=== PATIENT | male | born 1955 | race Caucasian/White ===

== ENCOUNTER 2018-02-10 04:53 | Inpatient (IN) ==
[2018-02-10] MEDS ORDERED: Ketorolac Inj 30 MG/ML (IVP) Vial IV.PUSH ONE (05:01)
[2018-02-10] MEDS ORDERED: Sod Chloride 0.9% Inj 1,000 ML IV.SIG ONE (05:01)
[2018-02-10] MEDS ORDERED: Morphine Inj 4 MG/ML Vial IV.PUSH ONE (05:01)
--- NOTE | 2018-02-10 05:12 | ED ---
HPI General Chief Complaint: Abdominal Pain Stated Complaint: flank pain Time Seen by Provider: 02/10/18 04:55 Source: patient Mode of arrival: EMS Limitations: no limitations History of Present Illness HPI narrative: The patient is a 62-year-old male who presents to the emergency department via EMS for right flank pain. The patient is currently visiting [place], from [place], and developed right flank pain 1 week ago. The patient's pain initially was in the right flank, intermittent, and dull. However, the pain has intensified over the last several hours and is now associated with nausea, diaphoresis, and hematuria. He does note a few bouts of dark colored urine, possibly hematuria, over the last several days. The patient does have a previous history of bladder stones and is scheduled to undergo MRI for his prostate when he returns to [place]. Symptoms are moderate to severe, there are no current alleviating or exacerbating factors. The patient denies any chest pain, shortness of breath, or cough. The patient has a history of seizures, surgical history is significant for tonsillectomy. MD complaint: Reports flank pain Onset (ago): day(s) Pain Consistency: intermittent Location: Reports R flank Severity: severe Severity scale (1-10): 8 Quality: Reports stabbing and sharp Radiation: Reports suprapubic Migration to: Reports suprapubic Relieving factors: nothing Exacerbating factors: nothing Associated symptoms: Reports nausea Related Data Patient : No Home Medications Medication Instructions Recorded Confirmed tamsulosin [Flomax] 0.4 mg PO DAILY 02/10/18 02/10/18 zonisamide 200 mg PO HS 02/10/18 02/10/18 Previous Rx's Medication Instructions Recorded hydrocodone-acetaminophen [[place]] 1 tab PO Q4H PRN #15 tab 02/10/18 ibuprofen 600 mg PO Q6H PRN #20 tab 02/10/18 Allergies Allergy/AdvReac Type Severity Reaction Status Date / Time codeine Allergy Seizures Verified 02/10/18 05:04 Penicillins Allergy Fever Verified 02/10/18 05:04 Review of Systems ROS: all other systems reviewed are negative [facility] Medical History Medical History Seizure (Acute) Surgical History Surgical History Hx of tonsillectomy (Acute) Social History Social History Substance History: No History of Abuse Second Hand Smoke Exposure: No Smoking Status: Never smoker How Often Do You Have a Drink Containing Alcohol: 2 to 4 times a month Immunization History Tetanus Immunization: Unsure Exam Narrative Exam Narrative: GENERAL: Awake, alert, pleasant 62-year-old male who appears his stated age and is in no acute respiratory distress. Patient does appear in moderate discomfort. SKIN: Focused skin assessment warm/dry. HEAD: Atraumatic. Normocephalic. EYES: Pupils equal and round. No scleral icterus. No injection or drainage. ENT: No nasal bleeding or discharge. Mucous membranes pink and moist. NECK: Trachea midline. No JVD. CARDIOVASCULAR: Regular, bradycardic with a heart rate in the 50s. RESPIRATORY: No accessory muscle use. Clear to auscultation. Breath sounds equal bilaterally. GASTROINTESTINAL: Abdomen soft, mild right flank tenderness. No guarding rigidity. Back: No CVA tenderness. MUSCULOSKELETAL: No obvious deformities. No clubbing. No cyanosis. No edema. NEUROLOGICAL: Awake and alert. No obvious cranial nerve deficits. Motor grossly within normal limits. Normal speech. PSYCHIATRIC: Appropriate mood and affect; insight and judgment normal. Course Consultations Consultation #1: Dr. Clark and Dr. Funez will admit to Dr. Mckinney. Time: 08:10 Initial Documented Vital Signs Pulse Rate 52 L 02/10/18 04:58 Respiratory Rate 19 02/10/18 04:58 Blood Pressure 138/82 02/10/18 04:58 Pulse Oximetry 97 02/10/18 04:58 Last Documented Vital Signs Temperature 97.6 F 02/11/18 08:00 Pulse Rate 91 H 02/11/18 08:00 Respiratory Rate 18 02/11/18 08:00 Blood Pressure 156/82 H 02/11/18 08:00 Pulse Oximetry 96 02/11/18 08:00 Medical Decision Making [facility] Narrative Medical decision making narrative: IV was established, labs are drawn and sent, and the patient was placed on cardiac telemetry monitoring and continuous pulse oximetry monitoring. EKG was ordered and interpreted. The patient was administered morphine, Toradol, Zofran, and IV fluids. Noncontrast CT of the abdomen and pelvis was obtained to evaluate for possible nephrolithiasis. CT of the abdomen and pelvis was positive for 4 mm stone on the right, the patient was reassessed at 6 AM, his pain had resolved. Creatinine was 1.14. The patient will be discharged home on hydrocodone and ibuprofen, will be provided a copy of his CT results and lab results at discharge. He is advised to follow- up with his primary physician and/or urologist upon return to [place]. I did review E force, the patient had no previous prescriptions on E force. 8 AM I received a phone call from Dr. Mai, pathologist, regarding the patient's peripheral blood smear. His peripheral blood smear shows either blast or circulating lymphoma cells. Therefore, the patient needs to be admitted to the hospital for further evaluation. Medical Screen Exam Complete: Yes Emergency Medical Condition: Yes Differential Diagnosis Differential Diagnosis: Differential diagnosis includes nephrolithiasis, hydronephrosis, pyelonephritis, testicular torsion, UTI, atypical appendicitis, biliary colic, lower lobe pneumonia, inferior DE. Lab Data Lab results reviewed: Yes I reviewed the patient's lab results. Result diagrams: 02/10/18 06:00 02/10/18 05:10 Lab Results 02/10/18 02/10/18 02/10/18 Range/Units 05:10 06:00 06:00 WBC 4.0 (4.0-11.0) th/mm3 RBC 3.79 L (4.50-5.90) mil/mm3 Hgb 12.3 L (13.0-17.0) gm/dL Hct 35.5 L (39.0-51.0) % MCV 93.8 (80.0-100.0) fL MCH 32.5 (27.0-34.0) pg MCHC 34.7 (32.0-36.0) % RDW 15.8 (11.6-17.2) % Plt Count 146 L (150-450) th/mm3 MPV 7.0 (7.0-11.0) fL Prelim Diff (Auto) Manual diff required WBC Differential Manual diff final Seg Neuts % (Manual) 39 (16-70) % Band Neuts % (Manual) 1 (0-6) % Lymphocytes % (Manual) 28 (9-44) % Monocytes % (Manual) 3 (0-8) % Blast Cells % (Manual) 29 H (0-0) % Abs Neuts (Manual) 1.6 L (1.8-7.7) th/mm3 Differential Comment . Platelet Estimate Low L (Normal) Platelet Morphology Normal (Normal) Ovalocytes 1+ H (None) Smear Path Review Sodium 142 (136-145) meq/L Potassium 3.6 (3.5-5.1) meq/L Chloride 111 H (98-107) meq/L Carbon Dioxide 20.9 L (21.0-32.0) meq/L Anion Gap 10 (5-15) meq/L BUN 25 H (7-18) mg/dL Creatinine 1.14 (0.60-1.30) mg/dL Estimated GFR 65 L (>89) mL/min Random Glucose 119 H (74-106) mg/dL Calcium 8.2 L (8.5-10.1) mg/dL Magnesium 2.1 (1.5-2.5) mg/dL Total Bilirubin 0.3 (0.2-1.0) mg/dL AST 28 (15-37) U/L ALT 46 (12-78) U/L Alkaline Phosphatase 85 (45-117) U/L Total Creatine Kinase 82 (39-308) U/L Troponin I Less than 0.02 L (0.02-0.05) ng/mL Total Protein 6.7 (6.4-8.2) g/dL Albumin 3.6 (3.4-5.0) g/dL Lipase 140 (73-393) U/L Urine Color (Yellw/Straw) Urine Clarity (Clear) Urine pH (5.0-8.5) Ur Specific Dairy (1.002-1.035) Urine Protein (Neg-Trace) mg/dL Urine Glucose (UA) (Negative) mg/dL Urine Ketones (Negative) mg/dL Urine Occult Blood (Negative) Urine Nitrate (Negative) Urine Bilirubin (Negative) Urine Urobilinogen (Less than 2) mg/dL Ur Leukocyte Esterase (Negative) Urine RBC (0-3) /hpf Urine WBC (0-5) /hpf Urine Bacteria (None) /hpf Urine Mucus (Occasional) /lpf Micro UA Comment Ur Microscopic Review Urine Culture Comments 02/10/18 Range/Units 06:15 WBC (4.0-11.0) th/mm3 RBC (4.50-5.90) mil/mm3 Hgb (13.0-17.0) gm/dL Hct (39.0-51.0) % MCV (80.0-100.0) fL MCH (27.0-34.0) pg MCHC (32.0-36.0) % RDW (11.6-17.2) % Plt Count (150-450) th/mm3 MPV (7.0-11.0) fL Prelim Diff (Auto) WBC Differential Seg Neuts % (Manual) (16-70) % Band Neuts % (Manual) (0-6) % Lymphocytes % (Manual) (9-44) % Monocytes % (Manual) (0-8) % Blast Cells % (Manual) (0-0) % Abs Neuts (Manual) (1.8-7.7) th/mm3 Differential Comment Platelet Estimate (Normal) Platelet Morphology (Normal) Ovalocytes (None) Smear Path Review Sodium (136-145) meq/L Potassium (3.5-5.1) meq/L Chloride (98-107) meq/L Carbon Dioxide (21.0-32.0) meq/L Anion Gap (5-15) meq/L BUN (7-18) mg/dL Creatinine (0.60-1.30) mg/dL Estimated GFR (>89) mL/min Random Glucose (74-106) mg/dL Calcium (8.5-10.1) mg/dL Magnesium (1.5-2.5) mg/dL Total Bilirubin (0.2-1.0) mg/dL AST (15-37) U/L ALT (12-78) U/L Alkaline Phosphatase (45-117) U/L Total Creatine Kinase (39-308) U/L Troponin I (0.02-0.05) ng/mL Total Protein (6.4-8.2) g/dL Albumin (3.4-5.0) g/dL Lipase (73-393) U/L Urine Color Yellow (Yellw/Straw) Urine Clarity Cloudy H (Clear) Urine pH 7.0 (5.0-8.5) Ur Specific Dairy 1.017 (1.002-1.035) Urine Protein 30 H (Neg-Trace) mg/dL Urine Glucose (UA) Negative (Negative) mg/dL Urine Ketones 20 (Negative) mg/dL Urine Occult Blood Large H (Negative) Urine Nitrate Negative (Negative) Urine Bilirubin Negative (Negative) Urine Urobilinogen Less than 2 (Less than 2) mg/dL Ur Leukocyte Esterase Moderate H (Negative) Urine RBC (0-3) /hpf Urine WBC 41 H (0-5) /hpf Urine Bacteria Occasional H (None) /hpf Urine Mucus Few H (Occasional) /lpf Micro UA Comment Culture indicated Ur Microscopic Review Not Reportable Urine Culture Comments Culture indicated Imaging Data Radiologist's impression: Abdomen/Pelvis CT 02/10/18 05:01 CONCLUSION: 1. 4 mm stone in the distal right ureter with moderate hydronephrosis on the right side. 2. Multiple calcifications within the urinary bladder related to either primary bladder stones or passed stones 3. Prostatic enlargement. 4. Scattered colonic diverticula. 5. Mild hiatal hernia. Discharge Plan Discharge Disposition Patient Disposition: 30 Still Patient Discharge Condition Condition: Stable Discharge Details Diagnosis: Ureterolithiasis, Acute UTI, Abnormal blood findings Physicians Team ED Provider: Galen Gordon Primary Care Provider: Primary Marlyn Gloria Attending Provider: Nikhil Mckinney Other Providers: Shirin Bautista Evan Status ED Status: Left Department Discharge Information Discharge Date/Time: 02/10/18 11:28
[2018-02-10 05:38] LABS: Alkaline Phosphatase 85 U/L (45-117); Total Protein 6.7 g/dL (6.4-8.2)
--- NOTE | 2018-02-10 05:43 | CT ---
EXAM DATE: 02/10/2018 5:03 AM EDT AGE/SEX: 62 years / Male INDICATIONS: Right flank pain past week. CLINICAL DATA: This is the patient's initial encounter. Patient reports that signs and symptoms have been present for 1 week and indicates a pain score of 10/10. MEDICAL/SURGICAL HISTORY: Seizures. Tonsillectomy. RADIATION DOSE: 9.90 CTDI (mGy) COMPARISON: . TECHNIQUE: Multiple contiguous axial images were obtained through the abdomen. Images were obtained using multiple row detector helical technique. Using automated exposure control and adjustment of the mA and/or kV according to patient size, radiation dose was kept as low as reasonably achievable to o btain optimal diagnostic quality images. DICOM format image data is available electronically for rev iew and comparison. FINDINGS: Lower Lungs: There is mild increased density seen at the posterior lower lungs likely related to atel ectasis. Liver: The liver has a homogeneous density without space-occupying lesion. There is no dilation of th e biliary tree. Spleen: Homogeneous density without enlargement. Pancreas: Unremarkable without mass or calcification. Kidneys: There is moderate dilatation of the right collecting system. There is a tiny 1 to 2 mm nono bstructing stone seen in the superior right collecting system. The right ureter is dilated to the mid pelvis. In this region, there is a 4 mm stone. This is approximately 3 cm proximal to the UVJ. The l eft kidney is unremarkable. Adrenal Glands: Unremarkable. Aorta: The aorta and proximal iliac vessels are grossly unremarkable without aneurysmal dilation. Bowel/Mesentery: The bowel loops are grossly unremarkable. The cecum and sigmoid colon have a normal configuration. The appendix is normal. There are a few scattered colonic diverticula. There is a mi ld hiatal hernia present. Abdominal Wall: Intact. Retroperitoneum: No evidence of adenopathy in the retrocrural, para-aortic, or deep pelvic regions. Bladder: There are several calcifications in the urinary bladder which may relate to either primary bladder stones or passed ureteral stones. Reproductive Organs: The prostate is enlarged. Prosthetic calcifications are present. Inguinal: The inguinal region is unremarkable without evidence of adenopathy. Bony Structures: There is some degenerative change at the lower lumbar spine. CONCLUSION: 1. 4 mm stone in the distal right ureter with moderate hydronephrosis on the right side. 2. Multiple calcifications within the urinary bladder related to either primary bladder stones or pa ssed stones 3. Prostatic enlargement. 4. Scattered colonic diverticula. 5. Mild hiatal hernia. Electronically signed by: Don Talavera MD 02/10/2018 5:41 AM EDT
[2018-02-10 05:54] LABS: Alanine Aminotransferase 46 U/L (12-78); Albumin 3.6 g/dL (3.4-5.0); Anion Gap 10 meq/L (5-15); Aspartate Aminotransferase 28 U/L (15-37); Blood Urea Nitrogen 25 mg/dL (7-18); Calcium 8.2 mg/dL (8.5-10.1); Carbon Dioxide 20.9 meq/L (21.0-32.0); Chloride 111 meq/L (98-107); Glomerular Filtration Rate 65 mL/min (>89); Glucose,Random 119 mg/dL (74-106); Lipase 140 U/L (73-393); Magnesium 2.1 mg/dL (1.5-2.5); Potassium 3.6 meq/L (3.5-5.1); Sodium 142 meq/L (136-145)
[2018-02-10 05:55] LABS: Creatine Kinase 82 U/L (39-308)
[2018-02-10 06:23] LABS: Hematocrit 35.5 % (39.0-51.0); Hemoglobin 12.3 gm/dL (13.0-17.0); Mean Corpuscular HGB Conc 34.7 % (32.0-36.0); Mean Corpuscular Hemoglobin 32.5 pg (27.0-34.0); Mean Corpuscular Volume 93.8 fL (80.0-100.0); Platelet Count 146 th/mm3 (150-450); Red Blood Count 3.79 mil/mm3 (4.50-5.90); Red Cell Distribution Width 15.8 % (11.6-17.2)
[2018-02-10 07:39] LABS: Bacteria,Urine Occasional /hpf; Bilirubin,Urine Negative (Negative); Clarity,Urine Cloudy (Clear); Color,Urine Yellow (Yellw/Straw); Glucose,Urine (UA) Negative (Negative); Leukocyte Esterase,Urine Moderate (Negative); Mucus,Urine Few /lpf (Occasional); Nitrite,Urine Negative (Negative); Specific Gravity,Urine 1.017 (1.002-1.035)
[2018-02-10 07:41] LABS: Monocytes 3 % (0-8)
[2018-02-10 07:42] LABS: Lymphocytes 28 % (9-44); Ovalocytes 1+; Platelet Morphology Normal (Normal)
[2018-02-10 07:54] LABS: Blast Cells 29 % (0-0)
--- NOTE | 2018-02-10 08:22 | P.HPFP ---
History of Present Illness Primary Care Physician: No Primary Care Physician <HankAmericay - 02/10/18 13:12> No Primary Care Physician <Mar Clark N - 02/10/18 08:22> Chief Complaint: back pain <Mar Clark N - 02/10/18 10:44> History of Present Illness: 62-year-old male presenting to the emergency department with urinary obstruction and found to have an obstructing nephrolithiasis. He states that he has had right flank pain for the last several weeks, was seen by his primary care physician up in [place] who ordered a ultrasound that showed mild hydronephrosis likely to urinary obstruction. This significantly worsened over the last 24 hours and his right side flank pain became debilitating and associated with nausea. He presented to the emergency department suspecting he had a kidney stone, and this was verified by CT scan with a 4 mm kidney stone and right-sided hydronephrosis. He does endorse occasional dysuria with recent dark colored urine. He denies overt fevers, denies abdominal pain, denies chest pain or palpitations. During his workup, his lab work returned showing 29% blasts on his CBC and it was recommended that he obtain a full peripheral smear and further workup. He was admitted for definitive treatment of his obstructing nephrolithiasis, UTI, and abnormal hematologic evaluation. Other than the right sided flank/abdominal pain over the last few weeks, he does endorse some mild fatigue but attributed this to a change in shift at his job, recently working the director of front office as well as waking up several times at night due to his enlarged prostate. He denies any weight loss or weight gain, denies any noticeable lymphadenopathy, denies any change in appetite or energy. He is currently being worked up for an enlarged prostate with elevating PSA, stating his PSA is somewhere in the range of 40. He is scheduled to have an MRI early next week followed by a urology evaluation. He has been treated for elevated PSA several times with antibiotics in the past, with resulting decrease in his PSA back into the normal range. <Nikhil Mckinney - 02/10/18 13:12> 62 y/o M presenting with stabbing back pain. Started out having an ache in his right side of his back in the last week and felt like he had a swelling. Increased significantly last night as a stabbing pain, so had sister call an ambulance to pick him up and take him to the hospital. Endorsed nausea and pleuritic pain that has now resolved with pain medication (received morphine x1 in the ED). Suspected he had a kidney stone. Had had occasional dysuria and blood (tiny little clots) in his urine (one time per month). Denies fevers, lower abdominal pain, nausea/vomiting. Has had a UTI associated w/fever of 103.5 in the past, for which he was hospitalized. Is from [place] visiting his sister in [place], will be leaving this Thursday. PCP Lula Mak at [facility] in [place], [place]. Was found to have enlarged prostate associated with a PSA count of 40 - his PCP ordered for an MRI when he returns to [place] on Thursday. Had an ultrasound done before this that "showed back pressure at the kidney." No kidney stone was seen and patient denies history of any kidney stones. US did show bladder stones. No recent weight loss, loss of appetite, night sweats. Notices ankle swelling (R >L) that is worse at the end of the day. Feels that energy level has been less than usual in the past few weeks. Has been sleeping less due to increased urinary frequency and more director of front office work. Works as a meteorologist. Family history: he is adopted. Aware that mom had skin cancer. from complications aortic aneurysm repair. Age 87. <Mar Clark - 02/10/18 10:44> - Diagnosis (1) Hydronephrosis with renal calculous obstruction (2) Complicated UTI (urinary tract infection) (3) Abnormal blood findings (4) BPH (benign prostatic hyperplasia) (5) Nutrition, metabolism, and development symptoms (6) DVT prophylaxis <Nikhil Mckinney - 02/10/18 13:12> (1) Hydronephrosis with renal calculous obstruction (2) Complicated UTI (urinary tract infection) (3) Abnormal blood findings (4) BPH (benign prostatic hyperplasia) (5) Nutrition, metabolism, and development symptoms (6) DVT prophylaxis <Mar Clark - 02/10/18 10:56> Inpatient Certification: I certify that the inpatient services were ordered in accordance with Medicare regulations governing the order. This includes certification that hospital inpatient services are reasonable and necessary and in the case of services not specified as inpatient-only under 42 CFR 419.22(n), that they are appropriately provided as inpatient services in accordance to with the 2-midnight benchmark under 43 CFR 412.3(e) <Nikhil Mckinney - 02/10/18 13:12> Review of Systems Eyes: Denies blurry vision, Denies double vision <Mar Clark 02/10/18 08: 40> Ears, Nose, Mouth, and Throat: Denies headache(s), Denies post nasal drip, Denies sore throat, Denies throat swelling <Mar Clark 02/10/18 08:40> Cardiovascular: Denies chest pain, Denies leg swelling, Denies shortness of breath [facility]> Respiratory: Denies chest congestion, Denies cough [facility]> Gastrointestinal: Denies abdominal pain, Denies change in bowel habits, Denies constipation, Denies incontinent of stools, Denies loose stools, Denies nausea, Denies vomiting <Mar Clark 02/10/18 08:40> Genitourinary: Reports blood in urine (Once in a while), Reports frequent nighttime urination, Reports urinary frequency, Reports urinary urgency <Mar Clark 02/10/18 08:40> Musculoskeletal: Denies body aches, Denies muscle cramps, Denies muscle weakness <Mar Clark 02/10/18 08:40> Skin/Breast: Denies skin pain <Mar Clark 02/10/18 08:40> Neurologic: Denies localized weakness, Denies memory loss, Denies numbness, Denies tingling/numbness/burning sensations <Mar Clark 02/10/18 08:40> Endocrine: Denies cold intolerance, Denies heat intolerance, Denies increased thirst <Mar Clark 02/10/18 08:40> Hematologic/Lymphatic: Denies easy bleeding, Denies easy bruising <Mar Clark 02/10/18 08:40> PMFSH - History History Provided By: Patient <Mar Clark 02/10/18 08:22> - Medical History Medical History: Medical History (Last Updated 02/10/18 @ 05:01 by Leon Squires) Seizure <Nikhil Mckinney 02/10/18 13:12> Medical History (Last Updated 02/10/18 @ 05:01 by Leon Squires) Seizure <Mar Clark 02/10/18 08:22> - Surgical History Surgical History: Surgical History (Last Updated 02/10/18 @ 05:02 by Leon Squires) Hx of tonsillectomy <Nikhil Mckinney 02/10/18 13:12> Surgical History (Last Updated 02/10/18 @ 05:02 by Leon Squires) Hx of tonsillectomy <Mar Clark 02/10/18 08:22> - Tobacco History Second Hand Smoke Exposure: No <Mar Clark 02/10/18 08:22> Smoking Status: Never smoker <Mar Clark 02/10/18 08:22> - Alcohol History How Often Do You Have a Drink Containing Alcohol: Monthly or less <Mar Clark 02/10/18 08:22> - Substance Use History Substance History: No History of Abuse <Mar Clark 02/10/18 08:40> - Immunization History Tetanus Immunization: Unsure <Mar Clark 02/10/18 08:22> Medications and Allergies Allergies Allergy/AdvReac Type Severity Reaction Status Date / Time codeine Allergy Seizures Verified 02/10/18 05:04 Penicillins Allergy Fever Verified 02/10/18 05:04 <Nikhil Mckinney 02/10/18 13:12> Home Medications Medication Instructions Recorded Confirmed Type tamsulosin [Flomax] 0.4 mg PO DAILY 02/10/18 02/10/18 History <HankNikhil 02/10/18 13:12> Active Medications: Active Medications Acetaminophen (Tylenol) 650 mg PO Q4H PRN PRN Reason: Temp > 100.4 Al Hydroxide/Mg Hydroxide (Milk Of Magnesia Liq) 30 ml PO Q12H PRN PRN Reason: Mild Constipation Bisacodyl (Dulcolax Supp) 10 mg RECTAL DAILY PRN PRN Reason: SEVERE CONSITIPATION Sodium Chloride (Ns Inj) 1,000 mls @ 120 mls/hr IV.CONT .Q8H20M [facility] Last Admin: 02/10/18 10:24 Dose: 120 mls/hr Ceftriaxone Sodium 1,000 mg/ (Sodium Chloride) 100 mls @ 200 mls/hr IV.SIG Q24H [facility] Ketorolac Tromethamine (Toradol Inj) 30 mg IV.PUSH Q6H PRN PRN Reason: PAIN 6-10;IF UNABLE TO TAKE PO Stop: 02/15/18 05:10 Last Admin: 02/10/18 11:36 Dose: 30 mg Ketorolac Tromethamine (Toradol Inj) 15 mg IV.PUSH Q6H PRN PRN Reason: PAIN 3-5; IF UABLE TO TAKE PO Stop: 02/15/18 05:10 Lactulose (Lactulose Liq) 30 ml PO DAILY PRN PRN Reason: SEVERE CONSITIPATION Morphine Sulfate (Morphine Inj) 4 mg IV.PUSH Q3H PRN PRN Reason: BREAKTHROUGH PAIN Naloxone HCl (Narcan Inj) 0.4 mg IV.PUSH UNSCH PRN PRN Reason: SEE LABEL COMMENTS Ondansetron HCl (Zofran Inj) 4 mg IV.PUSH Q6H PRN PRN Reason: NAUSEA OR VOMITING Last Admin: 02/10/18 11:35 Dose: 4 mg Sennosides (Senokot) 17.2 mg PO Q12H PRN PRN Reason: Moderate Constipation Sodium Chloride (Ns Flush) 2 ml IV.FLUSH PRN PRN PRN Reason: FLUSH AFTER USING IV ACCESS Tamsulosin HCl (Flomax) 0.4 mg PO DAILY [facility] Last Admin: 02/10/18 10:21 Dose: 0.4 mg Zonisamide (Zonegran) 200 mg PO HS [facility] <Nikhil Mckinney - 02/10/18 13:12> Active Medications Ceftriaxone Sodium 1,000 mg/ (Sodium Chloride) 100 mls @ 200 mls/hr IV.SIG ONCE ONE Stop: 02/10/18 08:39 Sodium Chloride (Ns Flush) 2 ml IV.FLUSH PRN PRN PRN Reason: FLUSH AFTER USING IV ACCESS <Mar Clark N - 02/10/18 08:22> Exam Vital signs: Vital Signs 02/10/18 04:58 02/10/18 09:00 02/10/18 10:49 Temperature Pulse Rate 52 L 104 H Respiratory Rate 19 20 Blood Pressure 138/82 139/88 Pulse Oximetry 97 97 99 02/10/18 12:00 Temperature 97.7 F Pulse Rate 65 Respiratory Rate 19 Blood Pressure 163/82 H Pulse Oximetry 95 Intake & Output 02/09/18 02/10/18 02/10/18 18:59 06:59 18:59 Intake Total 1000 / 1000 100 / 100 Balance 1000 / 1000 100 / 100 Weight 81.647 kg Intake: IV 1000 / 1000 100 / 100 NS Inj 1,000 ML @ Wide Open IV. 1000 / 1000 SIG BOLUS ONE Rx#:[id number] Rocephin Inj 1,000 MG In NS Inj 100 / 100 100 ML @ 200 mls/hr IV.SIG ONCE ONE Rx#:[id number] Other: Date of Last Bowel Movement 02/10/18 <Nikhil Mckinney - 02/10/18 13:12> Vital Signs 02/10/18 04:58 Pulse Rate 52 L Respiratory Rate 19 Blood Pressure 138/82 Pulse Oximetry 97 Intake & Output 02/09/18 02/10/18 02/10/18 18:59 06:59 18:59 Intake Total 1000 / 1000 Balance 1000 / 1000 Weight 81.647 kg Intake: IV 1000 / 1000 NS Inj 1,000 ML @ Wide Open IV. 1000 / 1000 SIG BOLUS ONE Rx#:[id number] <AmberMar N - 02/10/18 08:22> Narrative: GENERAL: Healthy-appearing male, lying in bed in no obvious distress. He did just receive pain medication SKIN: Warm and dry. No cervical or axillary LAD. CARDIOVASCULAR: Regular rate and rhythm. RESPIRATORY: No accessory muscle use. Clear to auscultation. Breath sounds equal bilaterally. GASTROINTESTINAL: Abdomen soft, non-tender, nondistended. NEUROLOGICAL: Awake and alert. No obvious cranial nerve deficits. PSYCHIATRIC: Appropriate mood and affect; insight and judgment normal. <Nikhil Mckinney - 02/10/18 13:12> GENERAL: Pleasant, thin White gentleman sitting calmly and comfortably in the bed. SKIN: Warm and dry. No cervical or axillary LAD. HEAD: Atraumatic. Normocephalic. EYES: Pupils equal and round. No scleral icterus. No injection or drainage. ENT: No nasal bleeding or discharge. Mucous membranes pink and moist. NECK: Trachea midline. CARDIOVASCULAR: Regular rate and rhythm. RESPIRATORY: No accessory muscle use. Clear to auscultation. Breath sounds equal bilaterally. GASTROINTESTINAL: Abdomen soft, non-tender, nondistended. Hepatic and splenic margins not palpable. No CVA tenderness. MUSCULOSKELETAL: 2+ edema at the right ankle, 1+ edema at the left. Pt points out small lipoma at the right posterior lower extremity. NEUROLOGICAL: Awake and alert. No obvious cranial nerve deficits. Motor grossly within normal limits. Normal speech. PSYCHIATRIC: Appropriate mood and affect; insight and judgment normal. <Mar Clark - 02/10/18 10:59> Results - Labs Result diagrams: 02/10/18 06:00 02/10/18 05:10 <Nikhil Mckinney - 02/10/18 13:12> Abnormal lab results 02/10/18 02/10/18 02/10/18 Range/Units 05:10 06:00 06:15 RBC 3.79 L (4.50-5.90) mil/mm3 Hgb 12.3 L (13.0-17.0) gm/dL Hct 35.5 L (39.0-51.0) % Plt Count 146 L (150-450) th/mm3 Blast Cells % (Manual) 29 H (0-0) % Abs Neuts (Manual) 1.6 L (1.8-7.7) th/mm3 Platelet Estimate Low L (Normal) Ovalocytes 1+ H (None) Chloride 111 H (98-107) meq/L Carbon Dioxide 20.9 L (21.0-32.0) meq/L BUN 25 H (7-18) mg/dL Estimated GFR 65 L (>89) mL/min Random Glucose 119 H (74-106) mg/dL Calcium 8.2 L (8.5-10.1) mg/dL Troponin I Less than 0.02 L (0.02-0.05) ng/mL Urine Clarity Cloudy H (Clear) Urine Protein 30 H (Neg-Trace) mg/dL Urine Occult Blood Large H (Negative) Ur Leukocyte Esterase Moderate H (Negative) Urine WBC 41 H (0-5) /hpf Urine Bacteria Occasional H (None) /hpf Urine Mucus Few H (Occasional) /lpf Short CBC 02/10/18 Range/Units 06:00 WBC 4.0 (4.0-11.0) th/mm3 Hgb 12.3 L (13.0-17.0) gm/dL Hct 35.5 L (39.0-51.0) % Plt Count 146 L (150-450) th/mm3 BMP 02/10/18 05:10 Sodium 142 Potassium 3.6 Chloride 111 H Carbon Dioxide 20.9 L BUN 25 H Creatinine 1.14 Calcium 8.2 L Cardiac Enzymes 02/10/18 Range/Units 05:10 Total Creatine Kinase 82 (39-308) U/L Troponin I Less than 0.02 L (0.02-0.05) ng/mL Liver Function 02/10/18 Range/Units 05:10 Total Bilirubin 0.3 (0.2-1.0) mg/dL AST 28 (15-37) U/L ALT 46 (12-78) U/L Alkaline Phosphatase 85 (45-117) U/L Albumin 3.6 (3.4-5.0) g/dL Urine 02/10/18 Range/Units 06:15 Urine Color Yellow (Yellw/Straw) Urine Clarity Cloudy H (Clear) Urine pH 7.0 (5.0-8.5) Ur Specific [place] 1.017 (1.002-1.035) Urine Protein 30 H (Neg-Trace) mg/dL Urine Glucose (UA) Negative (Negative) mg/dL <Nikhil Mckinney - 02/10/18 13:12> Abnormal lab results 02/10/18 02/10/18 02/10/18 Range/Units 05:10 06:00 06:15 RBC 3.79 L (4.50-5.90) mil/mm3 Hgb 12.3 L (13.0-17.0) gm/dL Hct 35.5 L (39.0-51.0) % Plt Count 146 L (150-450) th/mm3 Blast Cells % (Manual) 29 H (0-0) % Abs Neuts (Manual) 1.6 L (1.8-7.7) th/mm3 Platelet Estimate Low L (Normal) Ovalocytes 1+ H (None) Chloride 111 H (98-107) meq/L Carbon Dioxide 20.9 L (21.0-32.0) meq/L BUN 25 H (7-18) mg/dL Estimated GFR 65 L (>89) mL/min Random Glucose 119 H (74-106) mg/dL Calcium 8.2 L (8.5-10.1) mg/dL Troponin I Less than 0.02 L (0.02-0.05) ng/mL Urine Clarity Cloudy H (Clear) Urine Protein 30 H (Neg-Trace) mg/dL Urine Occult Blood Large H (Negative) Ur Leukocyte Esterase Moderate H (Negative) Urine WBC 41 H (0-5) /hpf Urine Bacteria Occasional H (None) /hpf Urine Mucus Few H (Occasional) /lpf Short CBC 02/10/18 Range/Units 06:00 WBC 4.0 (4.0-11.0) th/mm3 Hgb 12.3 L (13.0-17.0) gm/dL Hct 35.5 L (39.0-51.0) % Plt Count 146 L (150-450) th/mm3 BMP 02/10/18 05:10 Sodium 142 Potassium 3.6 Chloride 111 H Carbon Dioxide 20.9 L BUN 25 H Creatinine 1.14 Calcium 8.2 L Cardiac Enzymes 02/10/18 Range/Units 05:10 Total Creatine Kinase 82 (39-308) U/L Troponin I Less than 0.02 L (0.02-0.05) ng/mL Liver Function 02/10/18 Range/Units 05:10 Total Bilirubin 0.3 (0.2-1.0) mg/dL AST 28 (15-37) U/L ALT 46 (12-78) U/L Alkaline Phosphatase 85 (45-117) U/L Albumin 3.6 (3.4-5.0) g/dL Urine 02/10/18 Range/Units 06:15 Urine Color Yellow (Yellw/Straw) Urine Clarity Cloudy H (Clear) Urine pH 7.0 (5.0-8.5) Ur Specific [place] 1.017 (1.002-1.035) Urine Protein 30 H (Neg-Trace) mg/dL Urine Glucose (UA) Negative (Negative) mg/dL <Mar Clark - 02/10/18 08:22> - Imaging Impressions Abdomen/Pelvis CT 02/10/18 05:01 CONCLUSION: 1. 4 mm stone in the distal right ureter with moderate hydronephrosis on the right side. 2. Multiple calcifications within the urinary bladder related to either primary bladder stones or passed stones 3. Prostatic enlargement. 4. Scattered colonic diverticula. 5. Mild hiatal hernia. <Nikhil Mckinney - 02/10/18 13:12> Impressions Abdomen/Pelvis CT 02/10/18 05:01 CONCLUSION: 1. 4 mm stone in the distal right ureter with moderate hydronephrosis on the right side. 2. Multiple calcifications within the urinary bladder related to either primary bladder stones or passed stones 3. Prostatic enlargement. 4. Scattered colonic diverticula. 5. Mild hiatal hernia. <Mar Clark - 02/10/18 08:22> Caprini VTE Risk Assessment Caprini VTE Risk Assessment: No/Low Risk (score <= 1) <Mar Clark - 10:59> Caprini Risk Assessment Model: Point Value = 1 Point Value = 2 Point Value = 3 Point Value = 5 Age 41-60 Minor surgery BMI > 25 kg/m2 Swollen legs Varicose veins or History of unexplained or recurrent spontaneous Oral contraceptives or hormone replacement Sepsis (< 1 month) Serious lung disease, including pneumonia (< 1 month) Abnormal pulmonary function Acute myocardial infarction Congestive heart failure (< 1 month) History of inflammatory bowel disease Medical patient at bed rest Age 61-74 Arthroscopic surgery Major open surgery (> 45 min) Laparoscopic surgery (> 45 min) Malignancy Confined to bed (> 72 hours) Immobilizing plaster cast Central venous access Age >= 75 History of VTE Family history of VTE Factor V Leiden Prothrombin [id number] Lupus anticoagulant Anticardiolipin antibodies Elevated serum homocysteine Heparin-induced thrombocytopenia Other congenital or acquired thrombophilia Stroke (< 1 month) Elective arthroplasty Hip, pelvis, or leg fracture Acute spinal cord injury (< 1 month) <Nikhil Mckinney - 02/10/18 13:12> Point Value = 1 Point Value = 2 Point Value = 3 Point Value = 5 Age 41-60 Minor surgery BMI > 25 kg/m2 Swollen legs Varicose veins or History of unexplained or recurrent spontaneous Oral contraceptives or hormone replacement Sepsis (< 1 month) Serious lung disease, including pneumonia (< 1 month) Abnormal pulmonary function Acute myocardial infarction Congestive heart failure (< 1 month) History of inflammatory bowel disease Medical patient at bed rest Age 61-74 Arthroscopic surgery Major open surgery (> 45 min) Laparoscopic surgery (> 45 min) Malignancy Confined to bed (> 72 hours) Immobilizing plaster cast Central venous access Age >= 75 History of VTE Family history of VTE Factor V Leiden Prothrombin [id number] Lupus anticoagulant Anticardiolipin antibodies Elevated serum homocysteine Heparin-induced thrombocytopenia Other congenital or acquired thrombophilia Stroke (< 1 month) Elective arthroplasty Hip, pelvis, or leg fracture Acute spinal cord injury (< 1 month) <Mar Clark - 02/10/18 08:22> Prophylaxis Regimen: Total Risk Factor Score Risk Level Prophylaxis Regimen 0-1 Low Early ambulation 2 Moderate Order ONE of the following: *Sequential Compression Device (SCD) *Heparin 5000 units SQ BID 3-4 Higher Order ONE of the following medications: *Heparin 5000 units SQ TID *Enoxaparin/Lovenox 40 mg SQ daily (WT < 150 kg, CrCl > 30 mL/min) *Enoxaparin/Lovenox 30 mg SQ daily (WT < 150 kg, CrCl > 10-29 mL/min) *Enoxaparin/Lovenox 30 mg SQ BID (WT < 150 kg, CrCl > 30 mL/min) AND/OR *Sequential Compression Device (SCD) 5 or more Highest Order ONE of the following medications: *Heparin 5000 units SQ TID (Preferred with Epidurals) *Enoxaparin/Lovenox 40 mg SQ daily (WT < 150 kg, CrCl > 30 mL/min) *Enoxaparin/Lovenox 30 mg SQ daily (WT < 150 kg, CrCl > 10-29 mL/min) *Enoxaparin/Lovenox 30 mg SQ BID (WT < 150 kg, CrCl > 30 mL/min) AND *Sequential Compression Device (SCD) <Nikhil Mckinney - 02/10/18 13:12> Total Risk Factor Score Risk Level Prophylaxis Regimen 0-1 Low Early ambulation 2 Moderate Order ONE of the following: *Sequential Compression Device (SCD) *Heparin 5000 units SQ BID 3-4 Higher Order ONE of the following medications: *Heparin 5000 units SQ TID *Enoxaparin/Lovenox 40 mg SQ daily (WT < 150 kg, CrCl > 30 mL/min) *Enoxaparin/Lovenox 30 mg SQ daily (WT < 150 kg, CrCl > 10-29 mL/min) *Enoxaparin/Lovenox 30 mg SQ BID (WT < 150 kg, CrCl > 30 mL/min) AND/OR *Sequential Compression Device (SCD) 5 or more Highest Order ONE of the following medications: *Heparin 5000 units SQ TID (Preferred with Epidurals) *Enoxaparin/Lovenox 40 mg SQ daily (WT < 150 kg, CrCl > 30 mL/min) *Enoxaparin/Lovenox 30 mg SQ daily (WT < 150 kg, CrCl > 10-29 mL/min) *Enoxaparin/Lovenox 30 mg SQ BID (WT < 150 kg, CrCl > 30 mL/min) AND *Sequential Compression Device (SCD) <Mar Clark - 02/10/18 08:22> Assessment and Plan - Assessment (1) Hydronephrosis with renal calculous obstruction Code(s): N13.2 - Hydronephrosis with renal and ureteral calculous obstruction Status: Acute Plan: CT scan: 4 mm stone in the distal right ureter with moderate hydronephrosis on the right side. Multiple calcifications within the urinary bladder related to either primary bladder stones or passed stones. Prostatic enlargement. Urology consulted for obstructive nephrolithiasis -Continue Flomax 0.4 mg daily -Strain urine to evaluate for passage of stone Pain control: Toradol Morphine IV antibiotics with Rocephin -Urinalysis with moderate leukocyte esterase and 41 WBCs -Urine culture pending (2) Complicated UTI (urinary tract infection) Code(s): N39.0 - Urinary tract infection, site not specified Status: Acute Plan: Continue IV antibiotics with Rocephin Urine cultures pending Continue IV fluids (3) Abnormal blood findings Code(s): R79.9 - Abnormal finding of blood chemistry, unspecified Status: Acute Plan: CBC on admission shows elevated blasts at 29% -Formal peripheral blood smear ordered and pending Hematology consult placed (4) BPH (benign prostatic hyperplasia) Code(s): N40.0 - Benign prostatic hyperplasia without lower urinary tract symptoms Status: Acute Plan: Continue Flomax Patient is scheduled for an MRI as an outpatient Urology will see patient for the obstructive nephrolithiasis (5) Nutrition, metabolism, and development symptoms Code(s): R63.8 - Other symptoms and signs concerning food and fluid intake Status: Acute (6) DVT prophylaxis Status: Acute <Nikhil Mckinney - 02/10/18 13:12> (1) Hydronephrosis with renal calculous obstruction Code(s): N13.2 - Hydronephrosis with renal and ureteral calculous obstruction Status: Acute Plan: 4 mm stone Consult urology for possible stone removal/medical expulsive therapy IVF @ maintenance Con't home tamsulosin 0.4 mg daily Pain meds w/Tylenol and Toradol, morphine for breakthrough Order to strain urine (2) Complicated UTI (urinary tract infection) Code(s): N39.0 - Urinary tract infection, site not specified Status: Acute Plan: S/p Ceftriaxone in the ED Con't Ceftriaxone 1 g tomorrow Urine cx pending (3) Abnormal blood findings Code(s): R79.9 - Abnormal finding of blood chemistry, unspecified Status: Acute Plan: Order official peripheral blood smear Consult hematology/onc for possible further work-up (bone marrow bx, flow cyto, etc) CMP, ESR, LDH (4) BPH (benign prostatic hyperplasia) Code(s): N40.0 - Benign prostatic hyperplasia without lower urinary tract symptoms Status: Acute Plan: Con't home med Being evaluated w/outpatient PCP (5) Nutrition, metabolism, and development symptoms Code(s): R63.8 - Other symptoms and signs concerning food and fluid intake Status: Acute Plan: Fluids: maintenance for hydration Electrolytes: none Nutrition: regular (6) DVT prophylaxis Status: Acute Plan: Not indicated, encourage ambulation <Mar Clark - 02/10/18 10:56> - Assessment and Plan Discussed Condition With: Discussed w/Dr. Gordon and Dr. Mckinney <Mar Clark - 02/10/18 10:59>
[2018-02-10] MEDS ORDERED: Acetaminophen 325 MG Tablet PO PRN (09:59)
[2018-02-10] MEDS ORDERED: Bisacodyl 10 MG Supp RECTAL PRN (09:59)
[2018-02-10] MEDS ORDERED: Naloxone Inj 0.4 MG/ML Vial IV.PUSH PRN (10:10)
[2018-02-10] MEDS ORDERED: Morphine Inj 4 MG/ML Vial IV.PUSH PRN (10:10)
[2018-02-10] MEDS: Sod Chloride 0.9% Inj 1,000 ML IV.CONT SCH ×2 (10:24→17:22)
[2018-02-10] MEDS ORDERED: Ketorolac Inj 30 MG/ML (IVP) Vial IV.PUSH PRN (11:00)
[2018-02-10] MEDS: Ketorolac Inj 30 MG/ML (IVP) Vial IV.PUSH PRN ×2 (11:36→23:39)
--- NOTE | 2018-02-10 13:21 | P.CONURO ---
History of Present Illness Service: Urology Consult date: 02/10/18 Requesting Physician: Mar Clark Reason for Consult: Rt Ureteral stone Primary Care Provider: No Primary Care Physician Chief Complaint: back pain History of Present Illness: 62 y/o M presented to [facility] with stabbing back pain. He is visiting from [place], will be leaving on Thursday. He has a PCP and Urologist there and see him due to BPH and elevated PSA. He suppose to have MRI of the prostate when he returns back home. He has no h/o stones. He Started out having an ache in his right side of his back in the last week and felt like he had a swelling. Increased significantly last night as a stabbing pain, so had sister call an ambulance to pick him up and take him to the hospital. Endorsed nausea and pleuritic pain that has now resolved with pain medication (received morphine x1 in the ED). Suspected he had a kidney stone. Had had occasional dysuria and blood (tiny little clots) in his urine ( one time per month). Denies fevers, lower abdominal pain, nausea/vomiting. CT scan c/w 4mm right distal ureteral stone with mod hydro. His VS and LAbs are stable. UC is pending. His pain is well controlled. Urology consulted Review of Systems All other systems reviewed negative except as stated in HPI PMF - History History Provided By: Patient - Medical History Medical History: Medical History (Last Updated 02/10/18 @ 05:01 by Leon Squires) Seizure - Surgical History Surgical History: Surgical History (Last Updated 02/10/18 @ 05:02 by Leon Squires) Hx of tonsillectomy - Tobacco History Second Hand Smoke Exposure: No Smoking Status: Never smoker - Alcohol History How Often Do You Have a Drink Containing Alcohol: 2 to 4 times a month - Substance Use History Substance History: No History of Abuse - Immunization History Tetanus Immunization: Unsure Hx Influenza Vaccine This Season: No Medications and Allergies Active Medications: Active Medications Acetaminophen (Tylenol) 650 mg PO Q4H PRN PRN Reason: Temp > 100.4 Al Hydroxide/Mg Hydroxide (Milk Of Magnesia Liq) 30 ml PO Q12H PRN PRN Reason: Mild Constipation Bisacodyl (Dulcolax Supp) 10 mg RECTAL DAILY PRN PRN Reason: SEVERE CONSITIPATION Sodium Chloride (Ns Inj) 1,000 mls @ 120 mls/hr IV.CONT .Q8H20M [facility] Last Admin: 02/10/18 10:24 Dose: 120 mls/hr Ceftriaxone Sodium 1,000 mg/ (Sodium Chloride) 100 mls @ 200 mls/hr IV.SIG Q24H [facility] Ketorolac Tromethamine (Toradol Inj) 30 mg IV.PUSH Q6H PRN PRN Reason: PAIN 6-10;IF UNABLE TO TAKE PO Stop: 02/15/18 05:10 Last Admin: 02/10/18 11:36 Dose: 30 mg Ketorolac Tromethamine (Toradol Inj) 15 mg IV.PUSH Q6H PRN PRN Reason: PAIN 3-5; IF UABLE TO TAKE PO Stop: 02/15/18 05:10 Lactulose (Lactulose Liq) 30 ml PO DAILY PRN PRN Reason: SEVERE CONSITIPATION Morphine Sulfate (Morphine Inj) 4 mg IV.PUSH Q3H PRN PRN Reason: BREAKTHROUGH PAIN Naloxone HCl (Narcan Inj) 0.4 mg IV.PUSH UNSCH PRN PRN Reason: SEE LABEL COMMENTS Ondansetron HCl (Zofran Inj) 4 mg IV.PUSH Q6H PRN PRN Reason: NAUSEA OR VOMITING Last Admin: 02/10/18 11:35 Dose: 4 mg Sennosides (Senokot) 17.2 mg PO Q12H PRN PRN Reason: Moderate Constipation Sodium Chloride (Ns Flush) 2 ml IV.FLUSH PRN PRN PRN Reason: FLUSH AFTER USING IV ACCESS Tamsulosin HCl (Flomax) 0.4 mg PO DAILY [facility] Last Admin: 02/10/18 10:21 Dose: 0.4 mg Zonisamide (Zonegran) 200 mg PO [facility] Allergies Allergy/AdvReac Type Severity Reaction Status Date / Time codeine Allergy Seizures Verified 02/10/18 05:04 Penicillins Allergy Fever Verified 02/10/18 05:04 Home Medications Medication Instructions Recorded Confirmed Type tamsulosin [Flomax] 0.4 mg PO DAILY 02/10/18 02/10/18 History Physical Exam Vital Signs - 24 hr 02/10/18 04:58 02/10/18 09:00 02/10/18 10:49 Temperature Pulse Rate 52 L 104 H Respiratory Rate 19 20 Blood Pressure 138/82 139/88 Pulse Oximetry 97 97 99 02/10/18 12:00 Temperature 97.7 F Pulse Rate 65 Respiratory Rate 19 Blood Pressure 163/82 H Pulse Oximetry 95 Physical Exam: GENERAL: This is a well-nourished, well-developed patient, in no apparent distress. SKIN: No rashes, ecchymoses or lesions. Cool and dry. HEAD: Atraumatic. Normocephalic. CARDIOVASCULAR: Regular rate and rhythm without murmurs, gallops, or rubs. RESPIRATORY: Clear to auscultation. Breath sounds equal bilaterally. No wheezes , rales, or rhonchi. GASTROINTESTINAL: Abdomen soft, non-tender, nondistended. GENITOURINARY: No CVAT MUSCULOSKELETAL: Extremities without clubbing, cyanosis, or edema. NEUROLOGICAL: Awake and alert. Laboratory Results - last 24 hr 02/10/18 02/10/18 02/10/18 05:10 06:00 06:00 WBC 4.0 RBC 3.79 L Hgb 12.3 L Hct 35.5 L MCV 93.8 MCH 32.5 MCHC 34.7 RDW 15.8 Plt Count 146 L MPV 7.0 Prelim Diff (Auto) Manual diff required WBC Differential Manual diff final Seg Neuts % (Manual) 39 Band Neuts % (Manual) 1 Lymphocytes % (Manual) 28 Monocytes % (Manual) 3 Blast Cells % (Manual) 29 H Abs Neuts (Manual) 1.6 L Differential Comment . Platelet Estimate Low L Platelet Morphology Normal Ovalocytes 1+ H Smear Path Review Sodium 142 Potassium 3.6 Chloride 111 H Carbon Dioxide 20.9 L Anion Gap 10 BUN 25 H Creatinine 1.14 Estimated GFR 65 L Random Glucose 119 H Calcium 8.2 L Magnesium 2.1 Total Bilirubin 0.3 AST 28 ALT 46 Alkaline Phosphatase 85 Total Creatine Kinase 82 Troponin I Less than 0.02 L Total Protein 6.7 Albumin 3.6 Lipase 140 Urine Color Urine Clarity Urine pH Ur Specific [place] Urine Protein Urine Glucose (UA) Urine Ketones Urine Occult Blood Urine Nitrate Urine Bilirubin Urine Urobilinogen Ur Leukocyte Esterase Urine RBC Urine WBC Urine Bacteria Urine Mucus Micro UA Comment Ur Microscopic Review Urine Culture Comments 02/10/18 06:15 WBC RBC Hgb Hct MCV MCH MCHC RDW Plt Count MPV Prelim Diff (Auto) WBC Differential Seg Neuts % (Manual) Band Neuts % (Manual) Lymphocytes % (Manual) Monocytes % (Manual) Blast Cells % (Manual) Abs Neuts (Manual) Differential Comment Platelet Estimate Platelet Morphology Ovalocytes Smear Path Review Sodium Potassium Chloride Carbon Dioxide Anion Gap BUN Creatinine Estimated GFR Random Glucose Calcium Magnesium Total Bilirubin AST ALT Alkaline Phosphatase Total Creatine Kinase Troponin I Total Protein Albumin Lipase Urine Color Yellow Urine Clarity Cloudy H Urine pH 7.0 Ur Specific [place] 1.017 Urine Protein 30 H Urine Glucose (UA) Negative Urine Ketones 20 Urine Occult Blood Large H Urine Nitrate Negative Urine Bilirubin Negative Urine Urobilinogen Less than 2 Ur Leukocyte Esterase Moderate H Urine RBC Urine WBC 41 H Urine Bacteria Occasional H Urine Mucus Few H Micro UA Comment Culture indicated Ur Microscopic Review Not Reportable Urine Culture Comments Culture indicated Result Diagrams: 02/10/18 06:00 02/10/18 05:10 Imaging: ITS Impressions Abdomen/Pelvis CT 02/10/18 05:01 CONCLUSION: 1. 4 mm stone in the distal right ureter with moderate hydronephrosis on the right side. 2. Multiple calcifications within the urinary bladder related to either primary bladder stones or passed stones 3. Prostatic enlargement. 4. Scattered colonic diverticula. 5. Mild hiatal hernia. Assessment and Plan - Plan 62y.o M with distal ureteral obstructing stone - Continue care as per primaryt eam No acute intervention needed He has a good chance to pass it on his own Needs IV fluids, pain meds prn ( Toradol is ok), flomax Strain urine If stable for 24hrs he can be d/c home with above meds F/U on UC and treat if positive according to C&S His bladder stones are most likely due to his enlarged prostate Pt to see at [place] Discussed Condition With: Dr Thania CARLSON attending
--- NOTE | 2018-02-10 20:57 | MB ---
cc: Shirin Bautista MD DATE: 02/10/2018 REFERRING PHYSICIAN: Dr. Mar Clark CHIEF COMPLAINT: Dr. Clark requested consultation for Mr. Ybarra with suspected acute myeloid leukemia. HISTORY OF PRESENT ILLNESS: Mr. Ybarra is a 62-year-old man originally from [place]. He is here visiting his sister. Prior to coming down, he reports being run down from work. He is fatigued. He developed flank pain about a week ago, which intensified. Workup demonstrates a 4 mm stone in the distal right ureter with moderate hydronephrosis on the right side. There are multiple calcifications within the urinary bladder related to bladder stones or passed stones. He also has prostatic enlargement. He has known benign prostatic hypertrophy. He describes having an elevated PSA to the 40s, which goes down with antibiotic therapy. This suggests he has some prostatitis with benign prostatic hypertrophy. Previous biopsy for prostate cancer was negative. Laboratory evaluation on admission on 02/10/2018 shows a white count of 4.0, hemoglobin 12.3, platelet count 146,000. The differential was concerning for 29% blast. He is mildly neutropenic with absolute neutrophil count of 1600. Peripheral smear was reviewed with pathology, who sees atypical mononuclear cells present. There is one which suggests the presence of our Damian rods for diagnosis of acute myeloid leukemia. Flow cytometric analysis was sent this morning for evaluation to rule out acute myeloid leukemia. In the meantime, urology consultation was placed. He was offered hydration and Flomax. He is advised to strain the urine. He was pending discharge home when stable. He was referred back to his urologist in 4 months when he returns. However, at the time of the consultation, he has been unable to urinate. He is getting quite uncomfortable and his abdomen is quite distended. He has tried standing up several times to urinate to no avail. His BUN is 25. His creatinine is 1.4 on admission. PAST MEDICAL HISTORY: Nephrolithiasis, seizure disorder, benign prostatic hypertrophy, nephrolithiasis. PAST SURGICAL HISTORY: Tonsillectomy. SOCIAL HISTORY: Denies any tobacco, alcohol or illicit drug use. FAMILY HISTORY: Biologic mother had skin cancer. He is adopted. ALLERGIES: CODEINE AND PENICILLIN. CURRENT MEDICATIONS: 1. Acetaminophen p.r.n. 2. Milk of magnesia p.r.n. 3. Dulcolax p.r.n. 4. Ceftriaxone. 5. Toradol p.r.n. 6. Lactulose p.r.n. 7. Morphine p.r.n. 8. Zofran p.r.n. 9. Senokot p.r.n. 10. Flomax. PHYSICAL EXAMINATION: VITAL SIGNS: Temperature 97.8, heart rate 85, respiratory rate 19, blood pressure 141/68, saturation 97%. GENERAL: Mr. Ybarra is a 62-year-old man who looks his stated age. HEENT: His pupils are round, reactive to light and accommodation. Oropharynx is clear. NECK: Supple with no adenopathy. LUNGS: Clear. CARDIOVASCULAR: Reveals normal rate and rhythm. ABDOMEN: Distended, tympanic to percussion. LOWER EXTREMITIES: No edema. NEUROLOGIC: Nonfocal. No adenopathy noted. LABORATORY DATA: As described above. Imaging studies as described above. ASSESSMENT AND PLAN: Mr. Ybarra is a 62-year-old man with history of seizure, nephrolithiasis and benign prostatic hypertrophy with previous bouts of prostatitis. He is visiting his sister and developed symptoms of urinary retention and nephrolithiasis. At this point, he is unable to urinate at all. He is advised to try as standing up at bedside. He is unable to urinate. A Cordon catheter for obstruction is advised. In the meantime, hematology/oncology is consulted for the peripheral blasts seen. He has concerning symptoms of fatigue and a finding of acute myeloid leukemia. We will follow up the result of the flow cytometric analysis and the peripheral blood to confirm. He lives in [place] and would like to return to [place] to pursue his care. For this reason, a bone marrow biopsy evaluation is deferred. If indeed confirmed to have underlying hematologic malignancy, we discussed prompt planning to return back to [place] as soon as possible. His primary physician would be able to receive them there and refer him to appropriate hematology evaluation. We discussed in general terms diagnosis of acute myeloid leukemia. The diagnostic studies are still pending. In the meantime, we will continue to support him throughout this episode of urinary retention and nephrolithiasis. We will monitor closely for fevers given that he is mildly neutropenic. We will monitor his kidney function as well. Mr. Ybarra's questions were answered to his satisfaction. MD BETTY Cohen/joy , 08:14 PM , 08:27 PM
[2018-02-11] MEDS: Sod Chloride 0.9% Inj 1,000 ML IV.CONT SCH ×2 (01:43→10:37)
[2018-02-11 08:54] VITALS: RESP 18
[2018-02-11 09:12] LABS: Albumin 3.3 g/dL (3.4-5.0); Anion Gap 9 meq/L (5-15); Aspartate Aminotransferase 23 U/L (15-37); Blood Urea Nitrogen 24 mg/dL (7-18); Carbon Dioxide 20.6 meq/L (21.0-32.0); Chloride 114 meq/L (98-107); Glomerular Filtration Rate 54 mL/min (>89); Glucose,Random 97 mg/dL (74-106); Potassium 3.8 meq/L (3.5-5.1); Sodium 144 meq/L (136-145)
[2018-02-11 09:15] LABS: Alanine Aminotransferase 39 U/L (12-78); Alkaline Phosphatase 81 U/L (45-117); Total Protein 6.3 g/dL (6.4-8.2)
[2018-02-11] MEDS ORDERED: Ciprofloxacin 500 MG Tablet PO SCH (10:00)
--- NOTE | 2018-02-11 11:20 | P.PNFP ---
Subjective Interval history: Patient feels well this morning with resolution of right sided flank pain. He denies fevers or chills. He denies nausea or vomiting. He denies abdominal or flank pain this morning. He was unable to urinate yesterday evening and subsequently required a Cordon catheter to be placed, this was a difficult placement requiring 2 attempts before return of clear/yellow urine. Results - Labs Result diagrams: 02/10/18 06:00 02/11/18 08:31 Abnormal lab results 02/11/18 Range/Units 08:31 Chloride 114 H (98-107) meq/L Carbon Dioxide 20.6 L (21.0-32.0) meq/L BUN 24 H (7-18) mg/dL Creatinine 1.34 H (0.60-1.30) mg/dL Estimated GFR 54 L (>89) mL/min Calcium 8.0 L (8.5-10.1) mg/dL Total Protein 6.3 L (6.4-8.2) g/dL Albumin 3.3 L (3.4-5.0) g/dL BMP 02/11/18 08:31 Sodium 144 Potassium 3.8 Chloride 114 H Carbon Dioxide 20.6 L BUN 24 H Creatinine 1.34 H Calcium 8.0 L Liver Function 02/11/18 Range/Units 08:31 Total Bilirubin 0.4 (0.2-1.0) mg/dL AST 23 (15-37) U/L ALT 39 (12-78) U/L Alkaline Phosphatase 81 (45-117) U/L Albumin 3.3 L (3.4-5.0) g/dL Physical Exam Vital signs: Vital Signs 02/10/18 12:00 02/10/18 13:40 02/10/18 16:00 Temperature 97.7 F 97.8 F Pulse Rate 65 85 Respiratory Rate 19 18 19 Blood Pressure 163/82 H 141/68 H Pulse Oximetry 95 97 02/10/18 20:00 02/11/18 00:00 02/11/18 04:00 Temperature 97.0 F L 98.1 F 98.3 F Pulse Rate 97 H 91 H 79 Respiratory Rate 18 17 16 Blood Pressure 121/58 L 140/51 L 136/74 Pulse Oximetry 96 96 95 02/11/18 08:00 Temperature 97.6 F Pulse Rate 91 H Respiratory Rate 18 Blood Pressure 156/82 H Pulse Oximetry 96 Intake & Output 02/10/18 02/11/18 02/11/18 18:59 06:59 18:59 Intake Total 1900 / 1900 1500 / 1500 1000 / 1000 Output Total 600 / 600 1800 / 1800 Balance 1300 / 1300 -300 / -300 1000 / 1000 Weight 76.1 kg Intake: IV 1100 / 1100 1000 / 1000 1000 / 1000 NS Inj 1,000 ML @ 120 mls/hr IV 1000 / 1000 1000 / 1000 1000 / 1000 .CONT .Q8H20M [facility] Rx#:[id number] Rocephin Inj 1,000 MG In NS Inj 100 / 100 100 ML @ 200 mls/hr IV.SIG ONCE ONE Rx#:[id number] Oral 800 / 800 500 / 500 Output: Urine 600 / 600 900 / 900 Urine Amount (Catheter) 900 / 900 Indwelling Urethral Catheter 900 / 900 Other: # Voids 2 Date of Last Bowel Movement 02/10/18 02/10/18 Narrative: CONSTITUTIONAL/GEN: Well-appearing male, normally nourished, in NAD. LUNGS: clear A-P, respiratory effort is normal. CARDIOVASCULAR: RR without murmur or gallop. GI/ABD: soft without masses, without organomegaly. : no CVA tenderness PSYCH/MENTAL STATUS: Alert and oriented x 3. - Urinary Catheter Management Indwelling Urethral Catheter Cath placed during this visit: yes Reason for continuing: Acute urinary retention Insertion date: 02/10/18 Insertion time: 22:12 Assessment and Plan - Assessment (1) Hydronephrosis with renal calculous obstruction Code(s): N13.2 - Hydronephrosis with renal and ureteral calculous obstruction Status: Acute Plan: Urology consulted and evaluated patient, recommend continued conservative management as he will likely passed the stone on his own. He may have already passed the stone given resolution of his right-sided flank pain this morning. Urinalysis indicative of urinary tract infection. -Rocephin 1 g IV every 24 hours changed to Cipro 500 mg p.o. twice daily on -Will need a 10-day course of antibiotics Continue Flomax 0.4 mg daily Strain urine to evaluate for passage of stone Pain control: Toradol Morphine CT scan: 4 mm stone in the distal right ureter with moderate hydronephrosis on the right side. Multiple calcifications within the urinary bladder related to either primary bladder stones or passed stones. Prostatic enlargement. (2) Complicated UTI (urinary tract infection) Code(s): N39.0 - Urinary tract infection, site not specified Status: Acute Plan: Treatment as above for nephrolithiasis (3) Abnormal blood findings Code(s): R79.9 - Abnormal finding of blood chemistry, unspecified Status: Inactive Plan: Hematology consulted for evaluation of abnormal blood smear concerning for lymphoma versus leukemia - Appreciate recs from Dr. Bautista Flow cytometry analysis pending Peripheral blood smear formal read pending Bone marrow biopsy has been deferred as patient lives in [place] and with like to return to [place] for definitive diagnosis and treatment We will discussed the case with hematology today, possible discharge home for further workup and treatment (4) Urinary retention due to benign prostatic hyperplasia Code(s): N40.1 - Benign prostatic hyperplasia with lower urinary tract symptoms ; R33.8 - Other retention of urine Status: Acute Plan: Urinary retention requiring Cordon catheter placement yesterday evening Continue Cordon catheter at this time Patient will likely be discharged with Cordon catheter in place, continue Flomax and follow-up with urology as an outpatient for voiding trials (5) BPH (benign prostatic hyperplasia) Code(s): N40.0 - Benign prostatic hyperplasia without lower urinary tract symptoms Status: Acute Plan: Continue Flomax Patient is scheduled for an MRI as an outpatient Urology will see patient for the obstructive nephrolithiasis (6) Nutrition, metabolism, and development symptoms Code(s): R63.8 - Other symptoms and signs concerning food and fluid intake Status: Acute Plan: Fluids: maintenance for hydration Electrolytes: none Nutrition: regular (7) DVT prophylaxis Status: Acute Plan: Not indicated, encourage ambulation
[2018-02-11] MEDS ORDERED: Ketorolac 10 MG Tablet PO SCH (12:00)
[2018-02-11 20:49] VITALS: BP 165/90; PULSE 83; TEMP 97.4; O2SAT 97
== END 2018-02-11 16:03 | disposition home or self-care (01) ==
LOC: NEPE 04:53 → NEDA 08:33 → H7ONC 11:05
PROVIDERS: ADMIT Family Medicine; ATTEND Family Medicine